=== PATIENT | female | born 1975 | race Caucasian/White ===

== ENCOUNTER 2017-04-10 07:57 | Emergency (ER) | payer OTHER ==
[~2017-04-10] VITALS: Ht 170.2 cm; Wt 95.9 kg
[2017-04-10] MEDS ORDERED: FAMOTIDINE 20 MG/2 ML ONE (08:49)
[2017-04-10] MEDS ORDERED: ONDANSETRON 2MG/ML, 2ML ONE (08:49)
[2017-04-10] MEDS ORDERED: morphine SULFATE 10 MG/ML, 1ML ONE (08:49)
[2017-04-10] MEDS ORDERED: SODIUM CHLORIDE FLUSH 10ML SYR IVF ONE (09:00)
[2017-04-10] MEDS ORDERED: FAMOTIDINE 20 MG/2 ML IVP ONE (09:00)
[2017-04-10] MEDS ORDERED: ONDANSETRON 2MG/ML, 2ML IVPush ONE (09:00)
[2017-04-10] MEDS ORDERED: SODIUM CHLORIDE 0.9% 1,000ML IVBOLUS ONE (09:00)
[2017-04-10] MEDS: MORPHINE SULFATE 4 MG/ML, 1ML IVPush PRN ×2 (09:05→09:55)
[2017-04-10 09:07] LABS: HEMATOCRIT 40.5 % (34.6-47.8); HEMOGLOBIN 13.9 g/dL (11.7-16.4); WHITE BLOOD COUNT 7.9 x10^3/uL (3.4-10)
[2017-04-10 09:19] LABS: ASPARTATE AMINO TRANSFERASE 14 U/L (15-37); BLOOD UREA NITROGEN 14 mg/dL (7-18)
[2017-04-10 09:32] VITALS: BP 132/73
[2017-04-10 10:46] LABS: PATH.CAST-FLAG NOT PRESENT; SPERM-FLAG NOT PRESENT; SRC-FLAG NOT PRESENT; XTAL-FLAG NOT PRESENT; YLC-FLAG NOT PRESENT
[2017-04-10] MEDS ORDERED: CEFTRIAXONE PMX 1GM/50ML 50 ML ONE (11:20)
[2017-04-10] MEDS ORDERED: CEFTRIAXONE PMX 1GM/50ML 50 ML IV ONE (11:30)
== END 2017-04-10 11:53 | disposition home or self-care (01) ==
LOC: ED 08:45
DX: N10 Acute pyelonephritis (principal)
CPT/HCPCS: 36415; 74020; 80053; 81001; 83690; 84703; 85025; 87077; 87086; 87186; 93005; 96361; 96365; 96375; 96376; 99285; J0696; J2405; J7030; S0028